=== PATIENT | female | born 1935 | race Caucasian/White ===

== ENCOUNTER 2017-11-12 15:36 | Emergency (ER) | payer OTHER ==
[~2017-11-12] VITALS: Ht 160 cm; Wt 86.9 kg
[~2017-11-12 15:36] MED LIST: ASPIR-LOW81 MG PO; BRILINTA90 MG PO; CRESTOR10 MG PO; FENOFIBRATE134 M1 PO; FISH OIL 1,0001 EAC7 PO; HYDROCHLOROTHIA25 MG PO; LIPITOR80 MG PO; LISINOPRIL2.5 MG PO; LOPRESSOR25 MG PO; METFORMIN HCL500 MG PO; NICOTINE PATCH1 EAC2 TD; NITROSTAT0.4 MG SL; OMEPRAZOLE40 M1 PO; SYNTHROID125 MCG PO; SYNTHROID25 MCG PO; XANAX0.5 MG PO
[2017-11-12 20:45] VITALS: BP 160/71
== END 2017-11-12 20:46 | disposition home or self-care (01) ==
LOC: EME 15:36
DX: S80.211A Abrasion, right knee, initial encounter (principal); S80.212A Abrasion, left knee, initial encounter; S80.02XA Contusion of left knee, initial encounter; W18.30XA Fall on same level, unspecified, initial encounter; K21.9 Gastro-esophageal reflux disease without esophagitis; J44.9 Chronic obstructive pulmonary disease, unspecified; E78.5 Hyperlipidemia, unspecified; E03.9 Hypothyroidism, unspecified; E11.9 Type 2 diabetes mellitus without complications; I10 Essential (primary) hypertension; I25.2 Old myocardial infarction; I25.10 Atherosclerotic heart disease of native coronary artery without angina pectoris; Z95.5 Presence of coronary angioplasty implant and graft; F17.200 Nicotine dependence, unspecified, uncomplicated; Z90.49 Acquired absence of other specified parts of digestive tract; Z90.710 Acquired absence of both cervix and uterus; Z79.84 Long term (current) use of oral hypoglycemic drugs; Z88.2 Allergy status to sulfonamides; Z88.0 Allergy status to penicillin; Z88.6 Allergy status to analgesic agent; Z88.5 Allergy status to narcotic agent
CPT/HCPCS: 73564; 73590; 73610; 93971; 99281; 99284